=== PATIENT | female | born 2000 | race Caucasian/White ===

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

== ENCOUNTER 2024-03-06 20:37 | Emergency (ER) ==
[~2024-03-06] VITALS: Ht 165.1 cm; Wt 73.6 kg
[2024-03-06 20:37] VITALS: BP 129/80; TEMP 97.4; O2SAT 100
== END 2024-03-06 21:25 | disposition left against medical advice (07) ==
LOC: M ED 20:37
DX: Z53.21 Procedure and treatment not carried out due to patient leaving prior to being seen by health care provider (principal)

== ENCOUNTER 2024-05-11 11:51 | Emergency (ER) | payer SELFPAY ==
[~2024-05-11] VITALS: Ht 167.6 cm; Wt 71.7 kg
[2024-05-11] MEDS ORDERED: ESCITALOPRAM (11:59)
[2024-05-11] MEDS ORDERED: HYDR-3363 PO (13:40)
[2024-05-11 13:45] VITALS: BP 128/75; TEMP 98.8; O2SAT 100
== END 2024-05-11 13:48 | disposition home or self-care (01) ==
LOC: M ED 11:51
DX: F33.9 Major depressive disorder, recurrent, unspecified (principal); G47.00 Insomnia, unspecified; F43.81 Prolonged grief disorder; Z79.899 Other long term (current) drug therapy

== ENCOUNTER 2024-06-05 14:14 | Emergency (ER) | payer SELFPAY ==
[~2024-06-05] VITALS: Ht 165.1 cm; Wt 73.9 kg
[~2024-06-05 14:14] MED LIST: ESCITALOPRAM; HYDR-3363 PO
[2024-06-05 16:34] LABS: BASO % 0.4 % (0.0-1.0); EOS # 0.1 10^3/uL (0.0-0.5); EOS % 0.9 % (0.0-3.0); HEMATOCRIT 37.5 % (36.0-47.0); HEMOGLOBIN 12.1 g/dl (12.0-15.5); LYMPH # 2.9 10^3/uL (1.5-5.0); LYMPH % 34.5 % (24.0-44.0); MEAN CORPUSCULAR HEMOGLOBIN 27.9 pg (27.0-33.0); MEAN CORPUSCULAR HGB CONC 32.3 g/dl (32.0-36.5); MEAN CORPUSCULAR VOLUME 86.4 fl (80.0-96.0); MONO # 0.6 10^3/uL (0.0-0.8); MONO % 7.6 % (2.0-8.0); NEUTROPHILS # 4.8 10^3/uL (1.5-8.5); NEUTROPHILS % 56.5 % (36.0-66.0); PLATELET COUNT, AUTOMATED 259 10^3/uL (150-450); RED BLOOD COUNT 4.34 10^6/uL (4.00-5.40); WHITE BLOOD COUNT 8.5 10^3/uL (4.0-10.0)
[2024-06-05 17:26] LABS: HCG, SERUM QUANTITATIVE < 2.6 MIU/ML (<4.2)
[2024-06-05 17:27] LABS: BLOOD UREA NITROGEN 11 MG/DL (9-23); CALCIUM LEVEL 8.8 MG/DL (8.5-10.1); CARBON DIOXIDE LEVEL 28 MMOL/L (20-31); CHLORIDE LEVEL 113 MMOL/L (98-107); GLOMERULAR FILTRATION RATE > 60.0 (>60); GLUCOSE, FASTING 71 MG/DL (60-100); POTASSIUM SERUM 3.9 MMOL/L (3.5-5.1); SODIUM LEVEL 144 MMOL/L (136-145)
[2024-06-05 22:15] LABS: ALBUMIN 3.4 G/DL (3.2-5.2); BILIRUBIN,DIRECT 0.1 MG/DL (<0.4); BILIRUBIN,TOTAL 0.4 MG/DL (0.3-1.2)
[2024-06-05] MEDS: FAMOTIDINE IV BAG 20 MG in IV 1 EA IV ONE (22:24)
[2024-06-05] MEDS: PANTOPRAZOLE 40MG VIAL IV ONE (22:24)
[2024-06-05] MEDS: SUCRALFATE 1 GM TAB PO ONE (22:24)
[2024-06-06] MEDS ORDERED: PROT1TAB2 PO (01:02)
[2024-06-06] MEDS ORDERED: PEPC1TAB5 PO (01:02)
[2024-06-06] MEDS ORDERED: CARA1TAB6 PO (01:02)
[2024-06-06 01:34] VITALS: BP 138/80; TEMP 98.6; O2SAT 99
== END 2024-06-06 01:37 | disposition home or self-care (01) ==
LOC: M ED 14:14
DX: K30 Functional dyspepsia (principal); F32.A Depression, unspecified; Z79.899 Other long term (current) drug therapy
CPT/HCPCS: 80048; 80076; 83690; 84702; 85025; 96374; 99284; J2470; S0028

== ENCOUNTER 2024-10-08 21:38 | Emergency (ER) | payer SELFPAY ==
[~2024-10-08] VITALS: Ht 165.1 cm; Wt 74.4 kg
[~2024-10-08 21:38] MED LIST changes: +CARA1TAB6 PO; +PEPC1TAB5 PO; +PROT1TAB2 PO
[2024-10-08 21:40] VITALS: BP 147/88; TEMP 96.4; O2SAT 100
[2024-10-08 22:36] LABS: BASO % 0.2 % (0.0-1.0); EOS # 0.1 10^3/uL (0.0-0.5); EOS % 1.3 % (0.0-3.0); HEMATOCRIT 40.4 % (36.0-47.0); LYMPH # 3.7 10^3/uL (1.5-5.0); MEAN CORPUSCULAR HEMOGLOBIN 27.9 pg (27.0-33.0); MEAN CORPUSCULAR HGB CONC 32.2 g/dl (32.0-36.5); MEAN CORPUSCULAR VOLUME 86.7 fl (80.0-96.0); MONO # 0.7 10^3/uL (0.0-0.8); MONO % 7.4 % (2.0-8.0); NEUTROPHILS # 4.7 10^3/uL (1.5-8.5); PLATELET COUNT, AUTOMATED 269 10^3/uL (150-450); RED BLOOD COUNT 4.66 10^6/uL (4.00-5.40); WHITE BLOOD COUNT 9.1 10^3/uL (4.0-10.0)
[2024-10-08 22:54] LABS: KETONE, URINE AUTO RFX 1+ mg/dL (NEGATIVE); LEUKOCYTE ESTERASE UR AUTO RFX TRACE (NEGATIVE); MUCUS, URINE RFX MODERATE (NEGATIVE); NITRITE, URINE AUTO RFX NEGATIVE (NEGATIVE); RBC, URINE AUTO RFX 1 /HPF (0-3); SQUAM EPITHELIAL CELL UR AURFX 5 /HPF (0-6); WBC, URINE AUTO RFX 11 /HPF (0-3)
[2024-10-08 23:07] LABS: BLOOD UREA NITROGEN 10 MG/DL (9-23); CALCIUM LEVEL 8.7 MG/DL (8.5-10.1); CARBON DIOXIDE LEVEL 26 MMOL/L (20-31); CHLORIDE LEVEL 108 MMOL/L (98-107); CREATININE FOR GFR 0.66 MG/DL (0.55-1.30); GLOMERULAR FILTRATION RATE > 60.0 (>60); GLUCOSE, FASTING 80 MG/DL (60-100); POTASSIUM SERUM 3.9 MMOL/L (3.5-5.1); SODIUM LEVEL 143 MMOL/L (136-145)
[2024-10-08 23:12] LABS: HCG, SERUM QUALITATIVE NEGATIVE (NEGATIVE)
== END 2024-10-09 00:55 | disposition left against medical advice (07) ==
LOC: M ED 21:38
DX: Z53.21 Procedure and treatment not carried out due to patient leaving prior to being seen by health care provider (principal)

== ENCOUNTER 2024-12-14 13:58 | Emergency (ER) | payer BC, SELFPAY ==
[~2024-12-14] VITALS: Ht 165.1 cm; Wt 71.2 kg
[2024-12-14] MEDS: KETOROLAC 30 MG/ML 1ML VIAL IV ONE (15:04)
[2024-12-14 15:08] LABS: BASO % 0.3 % (0.0-1.0); EOS # 0.1 10^3/uL (0.0-0.5); EOS % 1.2 % (0.0-3.0); LYMPH # 1.8 10^3/uL (1.5-5.0); LYMPH % 25.1 % (24.0-44.0); MEAN CORPUSCULAR HEMOGLOBIN 28.6 pg (27.0-33.0); MEAN CORPUSCULAR HGB CONC 33.3 g/dl (32.0-36.5); MEAN CORPUSCULAR VOLUME 85.7 fl (80.0-96.0); MONO # 0.5 10^3/uL (0.0-0.8); MONO % 6.9 % (2.0-8.0); NEUTROPHILS # 4.8 10^3/uL (1.5-8.5); NEUTROPHILS % 66.4 % (36.0-66.0); PLATELET COUNT, AUTOMATED 240 10^3/uL (150-450); RED BLOOD COUNT 4.55 10^6/uL (4.00-5.40); WHITE BLOOD COUNT 7.3 10^3/uL (4.0-10.0)
[2024-12-14 15:37] LABS: ALBUMIN 3.7 G/DL (3.2-5.2); BILIRUBIN,DIRECT 0.2 MG/DL (<0.4); BILIRUBIN,TOTAL 0.4 MG/DL (0.3-1.2); TOTAL PROTEIN 7.2 G/DL (5.7-8.2)
[2024-12-14 16:03] VITALS: BP 115/79; TEMP 98.9; O2SAT 99
[2024-12-14] MEDS ORDERED: COLA100C5 PO (16:30)
[2024-12-14] MEDS ORDERED: META28.32 PO (16:30)
== END 2024-12-14 16:39 | disposition home or self-care (01) ==
LOC: EDBD 13:58 → M ED 13:58
DX: R10.9 Unspecified abdominal pain (principal); Z79.899 Other long term (current) drug therapy
CPT/HCPCS: 74021; 80047; 80076; 83690; 84702; 85025; 96374; 99284; J1885

== ENCOUNTER 2024-12-16 00:49 | Emergency (ER) | payer BC ==
[~2024-12-16] VITALS: Ht 165.1 cm; Wt 70.5 kg
[~2024-12-16 00:49] MED LIST changes: +COLA100C5 PO; +META28.32 PO
[2024-12-16 03:31] LABS: BASO % 0.3 % (0.0-1.0); EOS # 0.1 10^3/uL (0.0-0.5); EOS % 0.5 % (0.0-3.0); HEMATOCRIT 39.3 % (36.0-47.0); HEMOGLOBIN 12.9 g/dl (12.0-15.5); LYMPH # 2.2 10^3/uL (1.5-5.0); LYMPH % 21.9 % (24.0-44.0); MEAN CORPUSCULAR HEMOGLOBIN 28.4 pg (27.0-33.0); MEAN CORPUSCULAR HGB CONC 32.8 g/dl (32.0-36.5); MEAN CORPUSCULAR VOLUME 86.4 fl (80.0-96.0); MONO # 0.4 10^3/uL (0.0-0.8); MONO % 4.4 % (2.0-8.0); NEUTROPHILS # 7.3 10^3/uL (1.5-8.5); NEUTROPHILS % 72.5 % (36.0-66.0); PLATELET COUNT, AUTOMATED 261 10^3/uL (150-450); RED BLOOD COUNT 4.55 10^6/uL (4.00-5.40); WHITE BLOOD COUNT 10.1 10^3/uL (4.0-10.0)
[2024-12-16 04:13] LABS: LIPASE 29 U/L (12-53)
[2024-12-16 04:18] LABS: ALBUMIN 3.8 G/DL (3.2-5.2); ALKALINE PHOSPHATASE 107 U/L (35-104); ALT/SGPT 19 U/L (7.0-40); AST/SGOT 18 U/L (<34); BILIRUBIN,DIRECT 0.1 MG/DL (<0.4); BILIRUBIN,TOTAL 0.3 MG/DL (0.3-1.2); BLOOD UREA NITROGEN 9 MG/DL (9-23); CALCIUM LEVEL 8.9 MG/DL (8.5-10.1); CARBON DIOXIDE LEVEL 24 MMOL/L (20-31); CHLORIDE LEVEL 109 MMOL/L (98-107); CREATININE FOR GFR 0.64 MG/DL (0.55-1.30); GLOMERULAR FILTRATION RATE > 90.0 (>60); GLUCOSE, FASTING 97 MG/DL (60-100); POTASSIUM SERUM 3.6 MMOL/L (3.5-5.1); SODIUM LEVEL 144 MMOL/L (136-145); TOTAL PROTEIN 7.2 G/DL (5.7-8.2)
[2024-12-16] MEDS ORDERED: ISOVUE-370 76% 100ML VIAL As Ordered ONE (05:16)
[2024-12-16] MEDS: KETOROLAC 30 MG/ML 1ML VIAL IV ONE (05:39)
[2024-12-16 06:45] VITALS: BP 125/84; TEMP 98.5; O2SAT 99
== END 2024-12-16 06:52 | disposition home or self-care (01) ==
LOC: M ED 00:49
DX: R11.2 Nausea with vomiting, unspecified (principal); R10.813 Right lower quadrant abdominal tenderness; F10.10 Alcohol abuse, uncomplicated; Z79.899 Other long term (current) drug therapy
CPT/HCPCS: 74177; 80048; 80076; 83690; 85025; 96374; 99284; J1885; Q9967